=== PATIENT | female | born 1995 | race Caucasian/White ===

== ENCOUNTER 2022-03-15 14:15 | Emergency (ER) | payer BC ==
[2022-03-15 16:49] LABS: HEMOGLOBIN 14.9 gm/dl (12.3-15.3); RED BLOOD COUNT 4.98 M/UL (4.00-5.10); WHITE BLOOD COUNT 14.2 K/UL (4.5-11.0)
[2022-03-15 17:13] LABS: BUN/CREATININE RATIO 20 (0-10)
[2022-03-15] MEDS ORDERED: DICLEGIS DR 101 EACH PO (19:25)
== END 2022-03-15 20:12 | disposition home or self-care (01) ==
LOC: ER1 14:15
PROVIDERS: Physician Assistant Medical
DX: O21.9 Vomiting of pregnancy, unspecified (principal); O99.891 Other specified diseases and conditions complicating pregnancy; R19.7 Diarrhea, unspecified; Z88.1 Allergy status to other antibiotic agents; Z88.8 Allergy status to other drugs, medicaments and biological substances
CPT/HCPCS: 71045; 80053; 81001; 82550; 82553; 83690; 84484; 85025; 93005; 96361; 96374; 99284; J2765